=== PATIENT | male | born 1935 ===

== ENCOUNTER 2017-03-21 05:43 | Observation (INO) | payer MEDICARE ==
--- NOTE | 2017-03-21 06:39 | ED PDOC ---
HPI: Male Pain Time Seen by Provider: 03/21/17 06:08 Chief Complaint (Nursing): Male Genitourinary Chief Complaint (Provider): Male Genitourinary History Per: Patient History/Exam Limitations: no limitations Onset/Duration Of Symptoms: Hrs (x7) Current Symptoms Are (Timing): Still Present Additional Complaint(s): 82 year old male with a history of prostate cancer s/p resection presents to the emergency department complaining of difficulty urinating since 11 PM last night, Patient states he is unable to urinate. Has a suprapubic catheter in place, and also noticed clots coming out. Symptoms associated with lower abdominal pain. Denies any fever or vomiting. Patient is on Coumadin, presumably for varicose veins on legs. Urologist: Dr. Flores Past Medical History Reviewed: Historical Data, Nursing Documentation, Vital Signs Vital Signs: Last Vital Signs Temp 97.3 F L 03/21/17 05:52 Pulse 79 03/21/17 05:52 Resp 18 03/21/17 05:52 BP 179/88 H 03/21/17 05:52 Pulse Ox 95 03/21/17 05:52 - Medical History PMH: Deep Vein Thrombosis, Malignancy (prostate cancer 20 yrs ago) - Surgical History Other surgeries: Prostate resection - Family History Family History: States: Unknown Family Hx - Home Medications Home Medications: Ambulatory Orders Medication Instructions Recorded Metoprolol Succinate [Toprol XL] 25 mg PO DAILY 03/21/17 Warfarin [Coumadin] 3.5 mg PO DAILY 03/21/17 - Allergies Allergies/Adverse Reactions: Allergies Allergy/AdvReac Type Severity Reaction Status Date / Time No Known Allergies Allergy Verified 03/21/17 05:52 Review of Systems ROS Statement: Except As Marked, All Systems Reviewed And Found Negative Constitutional: Negative for: Fever, Chills Gastrointestinal: Positive for: Abdominal Pain. Negative for: Vomiting Genitourinary Male: Positive for: Other (unable to urinate, catheter in place) Physical Exam - Reviewed Nursing Documentation Reviewed: Yes Vital Signs Reviewed: Yes - Physical Exam Appears: Positive for: Non-toxic, No Acute Distress Head Exam: Positive for: ATRAUMATIC, NORMOCEPHALIC Skin: Positive for: Normal Color, Warm, Dry Eye Exam: Positive for: EOMI, Normal appearance, PERRL Neck: Positive for: Normal, Painless ROM, Supple Cardiovascular/Chest: Positive for: Regular Rate, Rhythm. Negative for: Murmur Respiratory: Positive for: Normal Breath Sounds. Negative for: Accessory Muscle Use, Respiratory Distress Gastrointestinal/Abdominal: Positive for: Soft, Tenderness (mild tenderness suprapubic region), Other (suprapubic catheter in place) Neurologic/Psych: Positive for: Alert, Oriented - Laboratory Results Result Diagrams: 03/21/17 06:50 03/21/17 06:50 - ECG O2 Sat by Pulse Oximetry: 95 (RA) Pulse Ox Interpretation: Normal Medical Decision Making Medical Decision Making: Initial Impression: Urinary retention due to obstruction of suprapubic catheter Time: 06:23 Initial Plan: --Blood type and screen --BMP --CBC w/ differential --PTT --Prothrombin time --Catheter irrigation --Reevaluation 07:00 --Patient will be signed out to Dr. Mishra, pending INR and reevaluation --Discussed with Dr. Carias, Urologist, for management as soon as catheter is drained. Even in bloody urine, but there is no sign of blockage. Pt can be discharged, still in coumadin. --Send urine culture and follow up with urologist. Scribe Attestation: Documented by Rizwana Baldwin, acting as a scribe for Meghan Tovar MD Provider Scribe Attestation: All medical record entries made by the Scribe were at my direction and personally dictated by me. I have reviewed the chart and agree that the record accurately reflects my personal performance of the history, physical exam, medical decision making, and the department course for this patient. I have also personally directed, reviewed, and agree with the discharge instructions and disposition. Disposition - Clinical Impression Clinical Impression: Suprapubic catheter dysfunction, Warfarin-induced coagulopathy - Patient ED Disposition Is Patient to be Admitted: Transfer of Care - Disposition Disposition: Transfer of Care Disposition Time: :00 Condition: FAIR
[2017-03-21 06:54] LABS: BASO % 0.4 % (0.0-2.0); EOS # 0.1 K/uL (0.0-0.7); EOS % 0.8 % (0.0-4.0); HEMOGLOBIN 12.3 g/dL (12.0-18.0); LYMPH # 0.8 K/uL (1.0-4.3); LYMPH % 10.1 % (20.0-40.0); MEAN CELL VOLUME 88.4 fl (80.0-94.0); MEAN CORPUSCULAR HEMOGLOBIN 28.6 pg (27.0-31.0); MEAN CORPUSCULAR HGB CONC 32.4 g/dL (33.0-37.0); MEAN PLATELET VOLUME 7.8 fl (7.2-11.7); MONO # 0.4 K/uL (0.0-0.8); MONO % 5.5 % (0.0-10.0); NEUT # 6.3 K/uL (1.8-7.0); NEUT % 83.2 % (50.0-75.0); RBC 4.29 Mil/uL (4.40-5.90); RED CELL DISTRIBUTION WIDTH 15.2 % (11.5-14.5); WHITE BLOOD COUNT 7.6 K/uL (4.8-10.8)
[2017-03-21 07:01] LABS: BLOOD UREA NITROGEN 20 mg/dl (9-20); GFR AFRICAN-AMERICAN > 60; GFR NON-AFRICAN AMERICAN > 60
[2017-03-21 07:10] LABS: PROTHROMBIN TIME 37.7 Seconds (9.8-13.1)
[2017-03-21 07:19] LABS: INR 3.3 (0.9-1.2)
--- NOTE | 2017-03-21 07:19 | ED PDOC ---
- Laboratory Results Result Diagrams: 03/21/17 06:50 03/21/17 06:50 - ECG O2 Sat by Pulse Oximetry: 95 (RA) Medical Decision Making Medical Decision Makin:00 --Patient was endorsed to be by Dr. Tovar. Pending INR and reevaluation. Disposition - Clinical Impression Clinical Impression: Suprapubic catheter dysfunction, Warfarin-induced coagulopathy - POA Present On Arrival: Cath Associated UTI - Disposition Referrals: Fernando Anton MD [Primary Care Provider] - Disposition: Hospitalized as Observation Patient Disposition Time: 07:33 Condition: FAIR Forms: [facility] ([place])
[2017-03-21] MEDS ORDERED: Morphine 4 MG/ML VIAL IVP ONE (07:33)
[2017-03-21] MEDS ORDERED: Morphine 4 MG/ML VIAL ONE (08:25)
[2017-03-21] MEDS ORDERED: Oxycodone/Acetaminophen 5/325 mg Tab PO PRN (10:10)
--- NOTE | 2017-03-21 11:30 | CP.PCM.PN ---
Subjective - Date & Time of Evaluation Date of Evaluation: 03/21/17 Time of Evaluation: 11:24 - Subjective Subjective: 82 year old it[place] male admitted because of gross hematuria,pt is on coumidin and his inr is abnormal,he has a suprapubic tube which is draining bloody urine. he is post rad rx in jan 2017. A cap hematuria Suggest. Hold coumidin IRRIGATE crawford q 1 hr. Discussed options with pt he wishes to be transfered to [place] Discussed with his urologist Dr Aleksey Vasquez ([phone]) he will accept pt if transfered to [place] ER DR Montes Informed Objective - Vital Signs/Intake and Output Vital Signs (last 24 hours): Temp Pulse Resp BP Pulse Ox 97.9 F 76 16 133/60 100 03/21/17 08:58 03/21/17 08:58 03/21/17 08:58 03/21/17 08:58 03/21/17 08:33 - Medications Medications: Current Medications Metoprolol Succinate (Toprol Xl) 25 mg PO DAILY VENTURA Oxycodone/Acetaminophen (Percocet 5/325 Mg Tab) 1 tab PO Q6 PRN PRN Reason: Pain, severe (8-10) Stop: 03/24/17 10:11 - Labs Labs: 03/21/17 06:50 03/21/17 06:50 PT 37.7 Seconds (9.8-13.1) H 03/21/17 06:50 INR 3.3 (0.9-1.2) H 03/21/17 06:50 APTT 46.0 Seconds (25.6-37.1) H 03/21/17 06:50
[2017-03-21 11:31] VITALS: RESP 17
[2017-03-21 11:38] VITALS: BP 147/73; PULSE 74; TEMP 97.5
[2017-03-21] MEDS ORDERED: Dextrose 5%/0.45% NS 1,000 ML IV SCH (12:45)
--- NOTE | 2017-03-21 23:05 | HP ---
HISTORY OF PRESENT ILLNESS: Mr. Romero is an 82-year-old male who was admitted via the emergency room because of gross hematuria on the day of admission. He declares that hematuria had resulted from about 11:00 p.m., denies before. He has a suprapubic catheter that was placed following a diagnosis of prostate cancer, for which he has received radiation therapy, last radiation was in January. He started bleeding with blood clots and clogged Tomlinson catheter. He came to the emergency room where multiple flushes of the catheter did not resolve blood clots and bleeding. He was therefore advised admission for workup and therapy and Urology evaluation. He is requesting to go to his doctor, Dr. Flores at the [facility]. Dr. Flores was called by Dr. Carias, the urologist, and agrees to see the patient, but the patient has come to the emergency room; but the patient's insurance company would not pay for lateral transfer, so the patient has to come out of pocket with $375 for transportation and he is not able to do that. PAST MEDICAL HISTORY: Remarkable for prostate cancer and atrial fibrillation, which was paroxysmal, for which he is on Coumadin therapy. FAMILY HISTORY: Unremarkable. SOCIAL HISTORY: He does not smoke or drink and lives at home with his . REVIEW OF SYSTEMS: Essentially unremarkable. PHYSICAL EXAMINATION: GENERAL: The patient is alert, oriented, appears to be in no distress at present. VITAL SIGNS: Blood pressure 179/88 with a pulse of 79, respiratory rate 18, he is afebrile, O2 sat 95% on room air. SKIN: Shows fair turgor. HEENT: Pupils are equal and reactive to light and accommodation. Mouth shows fair hygiene. NECK: JVP flat. LUNGS: Clear. HEART: Regular. No murmurs or gallops. ABDOMEN: Soft, nontender. No organomegaly. There is a suprapubic catheter in place. EXTREMITIES: Shows no edema or cyanosis. CENTRAL NERVOUS SYSTEM: Grossly intact. LABORATORY DATA: WBC 7.6, hemoglobin 12.3, platelet count 135,000. Sodium 140, potassium 4.3, BUN 20, creatinine 1.0, glucose 163. IMPRESSION: Gross hematuria, history of prostate cancer, history of paroxysmal atrial fibrillation. PLAN: Continue Tomlinson catheter flushes. Urology evaluation with final decision regarding patient being transferred to [facility] under Dr. Flroes. If not able to transfer, we will re-consult with Dr. Carias. We will keep patient n.p.o. for now in case he has to go to the OR for cystoscopy. Stew Donahue MD
[2017-03-22] MEDS ORDERED: Metoprolol Succinate 25 mg XL Tab PO SCH (09:00)
--- NOTE | 2017-03-22 11:13 | CP.PCM.DIS ---
Provider - Provider Date of Admission: 03/21/17 07:30 Attending physician: Stew Donahue MD Primary care physician: Fernando Anton MD Time Spent in preparation of Discharge (in minutes): 30 Diagnosis - Discharge Diagnosis (1) Prostate cancer Status: Acute (2) Suprapubic catheter dysfunction Status: Acute (3) Warfarin-induced coagulopathy Status: Acute Hospital Course - Lab Results Lab Results: Most Recent Lab Values WBC 7.6 K/uL (4.8-10.8) 03/21/17 06:50 RBC 4.29 Mil/uL (4.40-5.90) L 03/21/17 06:50 Hgb 12.3 g/dL (12.0-18.0) 03/21/17 06:50 Hct 38.0 % (35.0-51.0) 03/21/17 06:50 MCV 88.4 fl (80.0-94.0) 03/21/17 06:50 MCH 28.6 pg (27.0-31.0) 03/21/17 06:50 MCHC 32.4 g/dL (33.0-37.0) L 03/21/17 06:50 RDW 15.2 % (11.5-14.5) H 03/21/17 06:50 Plt Count 135 K/uL (130-400) 03/21/17 06:50 MPV 7.8 fl (7.2-11.7) 03/21/17 06:50 Neut % (Auto) 83.2 % (50.0-75.0) H 03/21/17 06:50 Lymph % (Auto) 10.1 % (20.0-40.0) L 03/21/17 06:50 Izard % (Auto) 5.5 % (0.0-10.0) 03/21/17 06:50 Eos % (Auto) 0.8 % (0.0-4.0) 03/21/17 06:50 Baso % (Auto) 0.4 % (0.0-2.0) 03/21/17 06:50 Neut # 6.3 K/uL (1.8-7.0) 03/21/17 06:50 Lymph # 0.8 K/uL (1.0-4.3) L 03/21/17 06:50 Izard # 0.4 K/uL (0.0-0.8) 03/21/17 06:50 Eos # 0.1 K/uL (0.0-0.7) 03/21/17 06:50 Baso # 0.0 K/uL (0.0-0.2) 03/21/17 06:50 PT 37.7 Seconds (9.8-13.1) H 03/21/17 06:50 INR 3.3 (0.9-1.2) H 03/21/17 06:50 APTT 46.0 Seconds (25.6-37.1) H 03/21/17 06:50 Sodium 140 mmol/l (132-148) 03/21/17 06:50 Potassium 4.3 MMOL/L (3.6-5.0) 03/21/17 06:50 Chloride 107 mmol/L (98-107) 03/21/17 06:50 Carbon Dioxide 24 mmol/L (22-30) 03/21/17 06:50 Anion Gap 13 (10-20) 03/21/17 06:50 BUN 20 mg/dl (9-20) 03/21/17 06:50 Creatinine 1.0 mg/dl (0.8-1.5) 03/21/17 06:50 Est GFR ( Amer) > 60 03/21/17 06:50 Est GFR (Non-Af Amer) > 60 03/21/17 06:50 Random Glucose 163 mg/dL (75-110) H 03/21/17 06:50 Calcium 9.0 mg/dL (8.4-10.2) 03/21/17 06:50 Blood Type O POSITIVE 03/21/17 06:32 Antibody Screen Negative 03/21/17 06:32 BBK History Checked No verified bt 03/21/17 06:32 - Hospital Course Hospital Course: hematuria persists Discharge Exam - Head Exam Head Exam: ATRAUMATIC, NORMOCEPHALIC - Eye Exam Eye Exam: EOMI, Normal appearance, PERRL Pupil Exam: NORMAL ACCOMODATION, PERRL - GI/Abdominal Exam GI & Abdominal Exam: Normal Bowel Sounds - Rectal Exam Rectal Exam: NORMAL INSPECTION - Exam Additional comments: gross hematuria - Neurological Exam Neurological exam: Alert, CN II-XII Intact, Normal Gait, Oriented x3, Reflexes Normal - Psychiatric Exam Psychiatric exam: Normal Affect, Normal Mood - Skin Skin Exam: Dry, Intact, Normal Color, Warm Discharge Plan - Follow Up Plan Condition: FAIR Disposition: HOME/ ROUTINE Patient education suggested?: Yes Instructions: Warfarin (By mouth), How to Care for Your Suprapubic Catheter (DC ) Additional Instructions: pt decided to go to the [facility] where his urologist goes Referrals: Fernando Anton MD [Primary Care Provider] -
[2017-03-22 22:15] VITALS: O2SAT 95
--- NOTE | 2017-03-24 21:57 | CON ---
DATE: 03/21/2017 CHIEF COMPLAINT: Gross hematuria. HISTORY OF PRESENT ILLNESS: The patient was admitted for observation from the emergency room because of gross hematuria. He has a suprapubic catheter in place. He is a known case of prostate cancer which was treated at [facility] most recently with radiation therapy in late January or early January of 2016. He states he began having gross hematuria today. Suprapubic catheter was placed because the patient could not void. Patient denies any dysuria, any fever, or chills. REVIEW OF SYSTEMS: RESPIRATORY: There are no respiratory complaints. GASTROINTESTINAL: The patient has no history of bowel problems or change in bowel habits. No history of nausea or vomiting. GENITOURINARY: The patient has a history of prostate cancer, being cared for by Dr. Aleksey Flores at [facility]. CARDIOVASCULAR: Patient has no history of chest pain or palpitations. ORTHOPEDIC: Patient has no history of fracture or orthopedic complaints. SOCIAL HISTORY: Noncontributory. The patient neither smokes nor drinks. FAMILY HISTORY: Noncontributory. PHYSICAL EXAMINATION: GENERAL: He is awake, alert, and oriented x3. HEAD, EARS, EYES, NOSE, AND THROAT: Within normal limits. NECK: Supple. There is no bruits, nodes, or masses. CHEST: Clear bilaterally. There are no rales or rhonchi. ABDOMEN: Soft, nontender. There is a permanent suprapubic cystotomy which is functioning properly. It is draining blood-tinged urine. GENITOURINARY: Testicles, epididymis, and scrotum are normal. Penis is normal. EXTREMITIES: Normal. NEUROLOGIC: Normal. RECTAL: Shows a 2 to 3+ non-nodular prostate without induration. IMPRESSION: Gross hematuria and prostate cancer. PLAN: Discussed options with the patient. He wished to be transferred to [facility]. He called his urologist, Dr. Aleksey Flores. He is willing to accept the patient, suggested transferring him to the emergency room. Also discussed this case with Dr. Stew Donahue, who will facilitate transfer. Patient is aware that he may return at any time and that transfer may be canceled if the condition worsens. Fernando Carias MD
== END 2017-03-21 15:20 | disposition home or self-care (01) ==
LOC: H.ER 05:43 → H.ERHOLD 07:30 → H.MEDSURG1 09:31
PROVIDERS: ADMIT Internal Medicine Pulmonary Disease; ATTEND Internal Medicine Pulmonary Disease
DX: T83.091A Other mechanical complication of indwelling urethral catheter, initial encounter (principal); C61 Malignant neoplasm of prostate; R31.0 Gross hematuria; I48.0 Paroxysmal atrial fibrillation; Z92.3 Personal history of irradiation; Z79.01 Long term (current) use of anticoagulants; R79.1 Abnormal coagulation profile; T45.515A Adverse effect of anticoagulants, initial encounter; Z86.718 Personal history of other venous thrombosis and embolism; Y84.6 Urinary catheterization as the cause of abnormal reaction of the patient, or of later complication, without mention of misadventure at the time of the procedure
CPT/HCPCS: 80048; 85025; 85610; 85730; 86850; 86900; 96365; 96375; 99285; A4322; G0378; J0696; J2270